=== PATIENT | male | born 1960 | race Caucasian/White ===

== ENCOUNTER → 2019-08-04 | Day surgery (SDC) | payer BC ==
[~2019-08-04] MED LIST: AMLO2.5T5 PO; ATOR40TA59 PO; IPRATRPIUM/ALBUTEROL 0.5/2.5MG 3 ML NEBU. NEB ONE; IV RINGERS,LACTATED 1000ML 1,000 ML IV SCH; LIDOCAINE 2% PF 5 ML VIAL. ONE; LISI10TA2 PO; PROPOFOL 20 ML IV ONE; SOTA80TA48 PO; TERB250T11 PO; VARE1TAB21 PO
[2019-08-04 08:20] VITALS: BP 130/83
--- NOTE | 2019-08-07 14:08 | PATHOLOGY ---
[facility] Accession Number: [id number] . 01 Material submitted: . hepatic flexure - HEPATIC FLEXURE POLYP . 01 Clinical history: . Vomiting . 02 Diagnosis: Colon biopsies, hepatic flexure polyp: - Tubular adenoma. (JPM:chidi; 08/07/2019) QMS 08/07/2019 1204 Local . 02 Comment: There is no high grade dysplasia or evidence of malignancy. (JPM:chidi; 08/07/2019) . 02 Electronically signed: . Toni Stiles MD, Pathologist NPI- [id number] . 01 Gross description: . Received in formalin labeled "Jhony Montanez, hepatic flexure polyp," is a 2.0 x 0.7 x 0.6 cm polypoid piece of soliz soft tissue. The margin is inked and the tissue is sectioned perpendicular to the margin and submitted entirely in cassette A1. Additionally received in the same container is a 1.1 x 0.8 x 0.8 cm polypoid piece of soliz soft tissue. The margin is inked and the specimen is sectioned perpendicular to the margin and entirely submitted in cassette A2. (TSD; 08/04/2019) TOB/TOB 08/04/2019 1757 Local . 02 Pathologist provided ICD-10: D12.3 . 02 CPT . 065716 Specimen Comment: A courtesy copy of this report has been sent to Specimen Comment: [phone]. Specimen Comment: Report sent to Performed at: 01 [facility] [address], [place] [id number] MD Jack Daly MD Phone: [phone] Performed at: 02 [facility] [address] [place], [place] [id number] MD Toni Stiles MD Phone: [phone]
== END ==
LOC: SURG 05:53
PROVIDERS: ATTEND Internal Medicine Gastroenterology
DX: D12.3 Benign neoplasm of transverse colon (principal); K29.50 Unspecified chronic gastritis without bleeding; K64.0 First degree hemorrhoids; K57.30 Diverticulosis of large intestine without perforation or abscess without bleeding; K44.9 Diaphragmatic hernia without obstruction or gangrene; F32.9 Major depressive disorder, single episode, unspecified; K21.9 Gastro-esophageal reflux disease without esophagitis; I25.2 Old myocardial infarction; I10 Essential (primary) hypertension; G20 Parkinson's disease; F41.9 Anxiety disorder, unspecified; F15.90 Other stimulant use, unspecified, uncomplicated; F17.210 Nicotine dependence, cigarettes, uncomplicated; Z98.890 Other specified postprocedural states; Z87.39 Personal history of other diseases of the musculoskeletal system and connective tissue; Z72.89 Other problems related to lifestyle
CPT/HCPCS: 43235; 45385; 88305; 94640; J2001; J2704; J7620; 45384